=== PATIENT | male | born 1970 | race Caucasian/White ===

== ENCOUNTER 2023-04-10 12:03 | Day surgery (SDC) | payer BC ==
[~2023-04-10] VITALS: Ht 177.8 cm; Wt 72.6 kg
[2023-04-10 12:57] VITALS: O2SAT 96
[2023-04-10] MEDS ORDERED: MIDAZOLAM HCL 5 MG/5 ML VIAL ONE (14:00)
[2023-04-10] MEDS ORDERED: fentaNYL CITRATE/PF 100 MCG/2 ML AMP ONE (14:00)
[2023-04-10 16:01] VITALS: BP_SYST 135; PULSE 79; RESP 19; TEMP 98
== END 2023-04-10 15:18 | disposition home or self-care (01) ==
LOC: SDS 12:03 → SMU 12:05 → SDS 15:18
PROVIDERS: ATTEND Surgery
DX: K62.5 Hemorrhage of anus and rectum (principal); K64.8 Other hemorrhoids
CPT/HCPCS: 45378; 99152; G0378; J2250; J3010